=== PATIENT | male | born 2000 | race Caucasian/White ===

== ENCOUNTER 2018-12-30 20:19 | Emergency (ER) | payer SELFPAY ==
--- NOTE | 2018-12-30 21:41 | EDM.PDOC ---
ED HPI GENERAL MEDICAL PROBLEM - General Chief Complaint: Chemical Exposure Stated Complaint: CHEMICAL SPRAYED ON PERSON Time Seen by Provider: 12/30/18 21:06 Source of Information: Reports: Patient History Limitations: Reports: No Limitations - History of Present Illness INITIAL COMMENTS - FREE TEXT/NARRATIVE: 18 year old male presents for evaluation and treatment following a chemical exposure at work. Patient reports he was cleaning with a full mask on when he was sprayed with a chemical called "caustic". Reports burn to the right wrist, right hip and perioral area. No cough, throat pain or swelling or shortness of breath. Patient rinsed his eyes at work following the exposure. Patient was rinsed in the de-con room upon arrival in the ER. Treatments CLOTHING CUTTER: Reports: Other (see below) Other Treatments CLOTHING CUTTER: flushed eyes Face/Facial Pain Score (Numeric/FACES): 2 - Related Data Allergies Allergy/AdvReac Type Severity Reaction Status Date / Time No Known Allergies Allergy Verified 12/30/18 21:05 Home Meds: Home Meds . [No Known Home Meds] 12/30/18 [History] Past Medical History - Past Health History Medical/Surgical History: Denies Medical/Surgical History Social & Family History - Family History Family Medical History: Noncontributory - Tobacco Use Smoking Status *Q: Never Smoker Second Hand Smoke Exposure: No - Caffeine Use Caffeine Use: Reports: Energy Drinks, Soda, Tea - Recreational Drug Use Recreational Drug Use: No ED ROS GENERAL - Review of Systems Review Of Systems: See Below HEENT: Denies: Throat Pain, Throat Swelling Respiratory: Denies: Shortness of Breath, Cough Skin: Reports: Burn(s) (right wrist, right hip, perioral) ED EXAM, BURN/SMOKE INHALATION - Physical Exam Exam: See Below Exam Limited By: No Limitations General Appearance: Alert, WD/WN, No Apparent Distress Eye Exam: Bilateral Eye: Normal Inspection Ears (Abbreviated): Normal External Exam Respiratory: No Respiratory Distress, Lungs Clear, Normal Breath Sounds Cardiovascular: Normal Peripheral Pulses, Regular Rate, Rhythm, No Murmur Neurological: Alert, Oriented, Normal Cognition, Normal Gait Psychiatric: Normal Affect, Normal Mood Skin Exam: Warm, Dry, Normal Color, Other (first and second degree burn to the right wrist <1% total body surface area; right hip first degree burn <1% of total body surface area; first and second degree burn to the left perioral area <1% total body surface area) Course - Vital Signs Last Recorded V/S: Last Vital Signs Temp 97.6 F 12/30/18 20:57 Pulse 82 12/30/18 20:57 Resp 16 12/30/18 20:57 BP 134/85 12/30/18 20:57 Pulse Ox 99 12/30/18 20:57 - Re-Assessments/Exams Free Text/Narrative Re-Assessment/Exam: 12/30/18 21:33 Poison control was contacted. Recommend treating the chemical pearson with bacitracin normal burn dressing. No additional recommendations given. Will discharge home. Discharge instructions as documented. Departure - Departure Time of Disposition: 21:37 Disposition: Home, Self-Care 01 Condition: Good Clinical Impression: Chemical burn - Discharge Information *PRESCRIPTION DRUG MONITORING PROGRAM REVIEWED*: No *COPY OF PRESCRIPTION DRUG MONITORING REPORT IN PATIENT LEIGH ANN: No Referrals: PCP,None [Primary Care Provider] - Forms: ED Department Discharge Additional Instructions: Wash the wound with gentle soap and water. Apply bacitracin to these wounds. you can purchase this [id number]. Keep the wounds covered. Monitor the wound signs of infection such as increased swelling, pus or redness. Present to clinic or the ER should these develop. Follow-up with occupational health as needed. Please return to ER if your symptoms change or worsen.
== END 2018-12-30 21:40 | disposition home or self-care (01) ==
LOC: JD.ED 20:19
DX: T54.91XA Toxic effect of unspecified corrosive substance, accidental (unintentional), initial encounter (principal); T23.671A Corrosion of second degree of right wrist, initial encounter; T28.5XXA Corrosion of mouth and pharynx, initial encounter; T24.511A Corrosion of first degree of right thigh, initial encounter; T32.0 Corrosions involving less than 10% of body surface
CPT/HCPCS: 99283; 99284